=== PATIENT | female | born 1975 | race Caucasian/White ===

== ENCOUNTER 2021-11-29 13:24 | Outpatient (CLI) | payer OTHER | END 2021-11-29 13:25 | disposition home or self-care (01) | LOC: CSHRAD 13:24 | PROVIDERS: ATTEND Family Medicine Sports Medicine | DX: M79.671 Pain in right foot (principal) ==

== ENCOUNTER 2023-11-19 12:44 | Outpatient (CLI) | payer BC, OTHER | END 2023-11-19 12:45 | disposition home or self-care (01) | LOC: CSHMAMMO 12:44 | PROVIDERS: ATTEND Family Medicine Sports Medicine | DX: Z12.31 Encounter for screening mammogram for malignant neoplasm of breast (principal); Z98.82 Breast implant status | CPT/HCPCS: 77063; 77067 ==